=== PATIENT | male | born 1990 | race Caucasian/White ===

== ENCOUNTER 2016-07-11 11:21 | Emergency (ER) | payer OTHER | END 2016-07-11 11:22 | disposition left against medical advice (07) | LOC: CED 11:21 | DX: S29.9XXA Unspecified injury of thorax, initial encounter (principal); V00.321A Fall from snow-skis, initial encounter ==

== ENCOUNTER 2016-07-13 17:39 | Emergency (ER) | payer OTHER ==
[2016-07-13 17:57] VITALS: BP 165/65; PULSE 88; RESP 18; TEMP 98; O2SAT 97
--- NOTE | 2016-07-13 18:07 | UCPHY ---
H & P Patient Type: New Chief Complaint Nursing Narrative: fell skiing Jul 03 hurting Rt chest - last pm Lt back/chest stared hurting - some inc. SOB Time Seen by Provider: 07/13/16 17:59 HPI/ROS: CHIEF COMPLAINT: Rib pain HISTORY OF PRESENT ILLNESS: The patient is a 26-year-old healthy man who comes to the Urgent Care complaining of chest and back pain. He states that he was skiing on and fell landing on his chest and then rolled over several times. He had pain to his breast bone immediately that radiated down to his right lower ribs. It has been hurting mildly since that time. He has also developed a little bit of left-sided lower rib pain posteriorly as well. Pain increases with twisting and movement. No pain with respiration. No shortness of breath. No fevers. No abdominal pain. REVIEW OF SYSTEMS: Constitutional: denies: chills, fever, recent illness, recent injury EENTM: denies: blurred vision, double vision, nose congestion Respiratory: See HPI Cardiac: denies: chest pain, irregular heart rate, lightheadedness, palpitations Gastrointestinal/Abdominal: denies: abdominal pain, diarrhea, nausea, vomiting, blood streaked stools Genitourinary: denies: dysuria, frequency, hematuria, pain Musculoskeletal: denies: joint pain, muscle pain Skin: denies: lesions, rash, jaundice, bruising Neurological: denies: headache, numbness, paresthesia, tingling, dizziness, weakness Hematologic/Lymphatic: denies: blood clots, easy bleeding, easy bruising Immunologic/allergic: denies: HIV/AIDS, transplant EXAM: GENERAL: Well-appearing, well-nourished and in no acute distress. HEAD: Atraumatic, normocephalic. EYES: Pupils equal round and reactive to light, extraocular movements intact, sclera anicteric, conjunctiva are normal. ENT: TMs normal, nares patent, oropharynx clear without exudates. Moist mucous membranes. NECK: Normal range of motion, supple without lymphadenopathy or JVD. LUNGS: Breath sounds clear to auscultation bilaterally and equal. No wheezes rales or rhonchi. No crepitus HEART: Regular rate and rhythm without murmurs, rubs or gallops. No pain with rib palpation. ABDOMEN: Soft, nontender, normoactive bowel sounds. No guarding, no rebound. No masses appreciated. BACK: No CVA tenderness, no spinal tenderness, step-offs or deformities EXTREMITIES: Normal range of motion, no pitting or edema. No clubbing or cyanosis. NEUROLOGICAL: Cranial nerves II through XII grossly intact. Normal speech, normal gait. 5/5 strength, normal movement in all extremities, normal sensation PSYCH: Normal mood, normal affect. SKIN: Warm, dry, normal turgor, no visible rashes or lesions. Source: Patient Exam Limitations: No limitations - Personal History Current Tetanus Diphtheria and Acellular Pertussis (TDAP): Yes - Medical/Surgical History Hx Asthma: No Hx Chronic Respiratory Disease: No Hx Diabetes: No Hx Cardiac Disease: No Hx Renal Disease: No Hx Cirrhosis: No Hx Alcoholism: No Other PMH: cleft palit repair/ ortho surg/ cysts from neck removed - Family History Significant Family History: No pertinent family hx - Social History Smoking Status: Never smoked Alcohol Use: Sober Drug Use: None Constitutional: Initial Vital Signs Temperature (C) 36.6 C 07/13/16 17:48 Heart Rate 88 07/13/16 17:48 Respiratory Rate 18 07/13/16 17:48 Blood Pressure 165/65 H 07/13/16 17:48 O2 Sat (%) 97 07/13/16 17:48 O2 Delivery Mode Room Air Allergies/Adverse Reactions: No Known Allergies Allergy (Unverified 07/13/16 17:48) Home Medications: Medication Instructions Recorded NK [No Known Home Meds] 07/13/16 Medical Decision Making - Diagnostics Imaging: X-ray: chest x-ray was obtained. I viewed the images myself on the PACS system. My interpretation of the images is: negative for acute disease . The radiologist interpretation is negative. ED Course/Re-evaluation: We discussed the patient's x-ray results. He is relieved. Declines further workup or testing at this time. He is eager to go home. We discussed indications for returning. Additional verbal discharge instructions given. Differential Diagnosis: Partial list of the Differential diagnosis considered include but were not limited to; chest pain, pulmonary contusion, pneumothorax, rib pain, rib fracture and although unlikely based on the history and physical exam, I also considered dissection, aneurysm, splenic injury, liver injury. I discussed these differential diagnoses and the plan with the patient as well as the usual and expected course. The patient understands that the diagnosis is provisional and that in medicine we are not always correct and that further workup is often warranted. Usual and customary warnings were given. All of the patient's questions were answered. The patient was instructed to return to the emergency department should the symptoms at all worsen or return, otherwise to followup with the physician as we discussed. Departure - Departure Disposition: Home, Routine, Self-Care Clinical Impression: Rib pain Condition: Fair Instructions: Rib Contusion (ED) Referrals: NONE *PRIMARY CARE P,. [Primary Care Provider] - As per Instructions Skyler Epps MD [Medical Doctor] - As per Instructions - PQRS PQRS Measurement: Not applicable
--- NOTE | 2016-07-13 18:21 | DX ---
PA and Lateral Chest - July 13, 2016, at 1810 hours Clinical Indications: Posterior right chest pain. Findings: The lungs are clear, and no masses are found. The heart and pulmonary vessels are normal. There are no pleural effusions and no pneumothorax. The bones are unremarkable for this age. Impression: Normal.
== END 2016-07-13 18:56 | disposition home or self-care (01) ==
LOC: CED 17:39
DX: R07.81 Pleurodynia (principal); M54.9 Dorsalgia, unspecified
CPT/HCPCS: 71020-PO; 99204-PO; G0463-PO